=== PATIENT | female | born 1965 | race Caucasian/White ===

== ENCOUNTER 2017-07-04 23:33 | Emergency (ER) | payer OTHER ==
[~2017-07-04 23:33] MED LIST: ACYC400T2 PO; AMLO-145 PO; AMLO-147 PO; FURO-109 PO; FURO40TA4 PO; LISI20TA11 PO; METF500T4 PO
== END 2017-07-05 01:12 | disposition home or self-care (01) ==
LOC: E/R 23:33
DX: R60.0 Localized edema (principal); D64.9 Anemia, unspecified; E11.65 Type 2 diabetes mellitus with hyperglycemia; E11.22 Type 2 diabetes mellitus with diabetic chronic kidney disease; N18.9 Chronic kidney disease, unspecified; I12.9 Hypertensive chronic kidney disease with stage 1 through stage 4 chronic kidney disease, or unspecified chronic kidney disease; Z79.84 Long term (current) use of oral hypoglycemic drugs
CPT/HCPCS: 36415; 71010; 80053; 81003; 85025; 85610; 85730; 93005; 93970; Z7502

== ENCOUNTER 2017-10-16 09:58 | Day surgery (SDC) | payer OTHER ==
[~2017-10-16] VITALS: Ht 165.1 cm; Wt 82.2 kg
[2017-10-16] MEDS ORDERED: LIDOCAINE 2% (SDV) 5 ML INJ ONE (10:26)
[2017-10-16] MEDS ORDERED: PROPOFOL 40 ML ONE (10:26)
[2017-10-16] MEDS ORDERED: ATOR40TA68 PO (10:36)
[2017-10-16] MEDS ORDERED: NIFE90TA11 PO (10:36)
[2017-10-16] MEDS ORDERED: METO-335 PO (10:36)
[2017-10-16] MEDS ORDERED: PENTOXIFYLLINE PO (10:36)
[2017-10-16] MEDS ORDERED: GLIP5TAB13 PO (10:36)
[2017-10-16] MEDS ORDERED: HYDR-3671 PO (10:36)
[2017-10-16] MEDS ORDERED: FESO4 PO (10:36)
[2017-10-16] MEDS ORDERED: hydrALAzine 20 MG INJ ONE (10:38)
[2017-10-16 10:42] VITALS: Ht 165.1 cm; Wt 82.2 kg
[2017-10-16 10:45] VITALS: BP 222/98; PULSE 80; RESP 20
--- NOTE | 2017-10-16 11:17 | OPPN ---
Date/Time of Note Date/Time of Note DATE: 10/16/17 TIME: 11:16 Operative Report Preoperative Diagnosis Screening Postoperative Diagnosis Poor prep making the exam inadequate Internal hemorrhoids Operation/Procedure Performed Colonoscopy Surgeon see signature line engineer assistant None Anesthesia: MAC Estimated blood loss: none Transfusion Required none Specimen None Grafts/Implants none Complications none NEFTALY BEDOLLA MD Oct 16, 2017 11:17
[2017-10-16 11:40] VITALS: BP 131/64; PULSE 83; RESP 16
--- NOTE | 2017-10-16 12:01 | GILP ---
DATE OF PROCEDURE: NAME OF PROCEDURE: Colonoscopy. SURGEON: Neftaly Wooten MD PREOPERATIVE DIAGNOSIS: Screening colonoscopy. POSTOPERATIVE DIAGNOSES: Poor prep with solid stool in the right colon and the cecum as well as sca ttered solid stool in other areas of the colon making the exam very inadequate. Internal hemorrhoids. INDICATION FOR THE PROCEDURE: Ms. Radha Hartman is a 52-year-old female patient who w as scheduled for screening colonoscopy. The procedure and possible complications were well explained to the patient, she understood and cons ented to the procedure. DESCRIPTION OF PROCEDURE: Under the influence of anesthesia, the colonoscope was carefully introduc ed in the rectum and under direct vision it was advanced all the way to the cecum. FINDINGS: The patient had poor prep with solid stool in the cecum, right colon and scattered in oth er areas of the colon making the exam very inadequate. The patient was noted to have internal hemor rhoids. She tolerated the procedure very well and there was no complication from the procedure. At the end of the procedure, she was awake with stable vital signs and she was discharged home to the care of h er family. IMPRESSION: Please see postoperative diagnosis. PLAN: The patient will need repeat colonoscopy with better preparation. Dictated By: NEFTALY JENSEN/BRYAN Conf#: [id number] DID#: [id number]
== END 2017-10-16 13:07 | disposition home or self-care (01) ==
LOC: GIL 09:58
PROVIDERS: ATTEND Internal Medicine Gastroenterology
DX: Z12.11 Encounter for screening for malignant neoplasm of colon (principal); I10 Essential (primary) hypertension; E11.9 Type 2 diabetes mellitus without complications; E78.5 Hyperlipidemia, unspecified
CPT/HCPCS: 45378; 82962; J0360; Z7610